=== PATIENT | male | born 1980 | race Hispanic/Latino ===

== ENCOUNTER 2017-08-12 17:19 | Emergency (ER) | payer OTHER, BC ==
[2017-08-12] MEDS ORDERED: DIPHTH,PERTUSS(ACELL),TET VAC 0.5 ML VIAL IM ONE (17:38)
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
[2017-08-12 17:55] LABS: Hematocrit 54.4 % (42.0-52.0); Hemoglobin 16.4 gm/dL (13.5-18.0); Mean Cell Volume 69.3 fl (78-100); Mean Corpuscular Hemoglobin 20.9 pg (27-31); Mean Corpuscular Hgb Conc 30.1 g/dl (32-36); Platelet Count 243 K/mm3 (150-450); Red Cell Distribution Width 17.9 % (11.5-14.0); White Blood Count 13.8 K/mm3 (4.0-10.5)
[2017-08-12 18:00] LABS: ALT 135 U/L (19-67); AST 151 U/L (0-48); Albumin * 3.9 gm/dl (3.4-5.0); Alkaline Phosphatase * 97 U/L (50-170); Anion Gap 14.6 mmol/L (6.8-13.8); BUN/Creatinine Ratio 19.8 (9.0-21.6); Bilirubin, Total 0.3 mg/dL (0.0-1.1); Blood Urea Nitrogen 20 mg/dL (6-23); Ca. Corrected For Albumin 8.8 mg/dL (8.4-10.2); Carbon Dioxide 27.2 mmol/L (24-32.6); Chloride 105 mmol/L (97-106); Glucose * 109 mg/dL (70-110); Potassium 3.8 mmol/L (3.4-4.6); Sodium 143 mmol/L (132-142); Total Protein 7.7 gm/dL (6.2-8.2)
[2017-08-12 18:08] LABS: Red Blood Count 7.85 M/mm3 (4.7-6.0)
[2017-08-12 18:09] LABS: Total Cells Counted 100
[2017-08-12] MEDS ORDERED: TETANUS AND DIPHTHERIA TOXOID 0.5 ML SYRG IM ONE (18:15)
[2017-08-12 18:19] LABS: Band 3 % (0-2.0); Lymphocyte 31 % (20-51); Monocyte 4 % (0-9); Neutrophil 62 % (42-75); Neutrophil # 8.6 K/mm3 (1.3-6.0); Platelet Estimate Normal (NORMAL)
[2017-08-12 18:21] LABS: Anisocytosis 2+
[2017-08-12 18:22] LABS: Spherocyte 1+; Target Cells 1+
[2017-08-12 18:23] LABS: Tear Drop Cells 1+
[2017-08-12 19:00] VITALS: BP 152/93
== END 2017-08-12 19:10 | disposition short-term general hospital (02) ==
LOC: ER 17:19
DX: S06.6X9A Traumatic subarachnoid hemorrhage with loss of consciousness of unspecified duration, initial encounter (principal); R40.2412 Glasgow coma scale score 13-15, at arrival to emergency department; V43.52XA Car driver injured in collision with other type car in traffic accident, initial encounter; Y92.411 Interstate highway as the place of occurrence of the external cause; S36.09XA Other injury of spleen, initial encounter; S27.321A Contusion of lung, unilateral, initial encounter; S22.42XA Multiple fractures of ribs, left side, initial encounter for closed fracture; S32.402A Unspecified fracture of left acetabulum, initial encounter for closed fracture; Z23 Encounter for immunization; S41.119A Laceration without foreign body of unspecified upper arm, initial encounter
CPT/HCPCS: 36415; 70450; 70486; 71010; 71260; 72193; 74177; 80053; 85007; 85025; 86850; 86900; 90471; 90715; 99285; G0481